=== PATIENT | male | born 1940 | race Caucasian/White ===

== ENCOUNTER → 2016-12-17 | Outpatient (CLI) | payer MEDICARE, OTHER ==
[2016-12-17 11:21] LABS: ALBUMIN 3.6 gm/dL (3.5-5.0); ANION GAP 14.6 (10.0-19.0); CALCIUM 8.6 mg/dL (8.5-10.5); CREATININE 1.1 mg/dL (0.6-1.3); PHOSPHORUS 3.2 mg/dL (2.5-4.9)
[2016-12-17 11:22] LABS: POTASSIUM 4.6 mMol/L (3.7-5.1)
== END | disposition disaster alternative care site (69) ==
LOC: LCNC 10:58
PROVIDERS: Internal Medicine Interventional Cardiology
DX: I73.9 Peripheral vascular disease, unspecified (principal)

== ENCOUNTER → 2016-12-23 | Outpatient (CLI) | payer MEDICARE, OTHER | END | disposition disaster alternative care site (69) | LOC: GRAD 12-15 16:00 | DX: I73.9 Peripheral vascular disease, unspecified (principal); I74.5 Embolism and thrombosis of iliac artery; I74.3 Embolism and thrombosis of arteries of the lower extremities; I71.4 Abdominal aortic aneurysm, without rupture; K57.90 Diverticulosis of intestine, part unspecified, without perforation or abscess without bleeding; Z95.828 Presence of other vascular implants and grafts | CPT/HCPCS: Q9967 ==